=== PATIENT | male | born 1965 | race Caucasian/White ===

== ENCOUNTER → 2016-12-03 | Outpatient (CLI) | payer OTHER ==
[~2016-12-03] MED LIST: FINA5TAB4 PO; TAMS0.4C38 PO; ZOLP5TAB PO
[2016-12-03 13:12] LABS: HEMATOCRIT 44.2 % (42-52); MEAN CELL VOLUME 81.9 fL (80-100); MEAN CORPUSCULAR HEMOGLOBIN 28.5 pg (25-34); MEAN CORPUSCULAR HGB CONC 34.8 g/dl (32-36); MEAN PLATELET VOLUME 9.9 fL (7.4-10.4); PLATELET COUNT 194 K/uL (130-400); WHITE BLOOD COUNT 4.84 K/uL (4.8-10.8)
[2016-12-03 13:13] LABS: AMYLASE 59 U/L (25-115); GLUCOSE,FASTING 87 mg/dl (70-99)
[2016-12-03 13:21] LABS: ALKALINE PHOSPHATASE 63 U/L (45-117); ALT/SGPT 58 U/L (12-78); AST/SGOT 24 U/L (15-37); PROSTATE SPECIFIC ANTIGEN 0.137 ng/ml (0.000-4.000)
== END | disposition home or self-care (01) ==
LOC: C.LABMFLN 09:29
PROVIDERS: ATTEND Family Medicine
DX: G47.00 Insomnia, unspecified (principal); M54.9 Dorsalgia, unspecified; R17 Unspecified jaundice; Z13.220 Encounter for screening for lipoid disorders; Z13.1 Encounter for screening for diabetes mellitus; Z12.5 Encounter for screening for malignant neoplasm of prostate

== ENCOUNTER → 2017-12-09 | Outpatient (CLI) | payer OTHER | END | disposition home or self-care (01) | LOC: C.LABMFLN 07:37 | PROVIDERS: ATTEND Family Medicine | DX: Z13.220 Encounter for screening for lipoid disorders (principal); Z13.1 Encounter for screening for diabetes mellitus; Z12.5 Encounter for screening for malignant neoplasm of prostate ==